=== PATIENT | female | born 1950 | race African-American/Black ===

== ENCOUNTER 2024-11-19 16:43 | Inpatient (IN) | payer MEDICARE, OTHER ==
[~2024-11-19] VITALS: Ht 154.9 cm; Wt 76.2 kg
[2024-11-19 16:44] VITALS: BP 155/84
[2024-11-19 17:02] LABS: PLATELET COUNT (AUTO) 162 K/uL (179-408); RED BLOOD CELL COUNT(AUTO) 4.17 MIL/uL (3.63-4.92); RED CELL DISTRIBUTION WIDTH 13.7 % (12.3-17.7); WHITE BLOOD COUNT (AUTO) 5.7 K/uL (3.8-11.8)
[2024-11-19 17:11] LABS: CREATININE 1.7 mg/dL (0.6-1.3); SODIUM SERUM 141 mmol/L (136-145); UREA NITROGEN, BLOOD 36 mg/dL (7-18)
[2024-11-19 17:15] LABS: ETHANOL < 3 MG/DL (0-10)
[2024-11-19] MEDS ORDERED: LEVO100T10 PO (17:16)
[2024-11-19] MEDS ORDERED: CHOL100062 PO (17:16)
[2024-11-19] MEDS ORDERED: DOCU-141 PO (17:16)
[2024-11-19] MEDS ORDERED: METO-357 PO (17:16)
[2024-11-19] MEDS ORDERED: DEXT15DR23 EACHEYE ×2 (17:16)
[2024-11-19] MEDS ORDERED: ACET325T53 PO (17:16)
[2024-11-19] MEDS ORDERED: OLAN10TA73 PO (17:16)
[2024-11-19] MEDS ORDERED: ASPI-1169 PO (17:16)
[2024-11-19] MEDS ORDERED: BUPR-96 PO (17:16)
[2024-11-19] MEDS ORDERED: THIA100T88 PO (17:16)
[2024-11-19] MEDS ORDERED: ATOR40TA PO (17:16)
[2024-11-19 17:23] LABS: ASPARTATE AMINOTRANSFERASE 10 U/L (15-37); TOTAL PROTEIN, SERUM 7.9 g/dL (6.4-8.2)
[2024-11-19 17:59] LABS: *BILIRUBIN,URIN NEGATIVE (NEGATIVE); *CLARITY,URINE CLEAR (CLEAR); *COLOR,URINE LIGHT YELLOW (YELLOW); *KETONES,URINE NEGATIVE (NEGATIVE); *PROTEIN,URINE NEGATIVE (NEGATIVE); *UROBILINOGEN,URINE 0.2 E.U./dl (NORMAL); LEUKOCYTE ESTERASE ,URINE NEGATIVE (NEGATIVE); NITRITE, URINE NEGATIVE (NEGATIVE); UGLUCOSE NEGATIVE (NEGATIVE)
[2024-11-19 18:00] LABS: *BLOOD, URINE TRACE (NEGATIVE)
[2024-11-19 18:05] LABS: SQUAMOUS EPITHELIAL CELL,UR FEW /HPF (NONE SEEN)
[2024-11-19 18:10] LABS: *AMPHETAMINE, URINE NEGATIVE (NEGATIVE); *BARBITURATE, URINE NEGATIVE (NEGATIVE); *BENZODIAZEPINE, URINE NEGATIVE (NEGATIVE); *CANNABINOID, URINE NEGATIVE (NEGATIVE); *COCCAINE, URINE NEGATIVE (NEGATIVE); *OPIATE, URINE NEGATIVE (NEGATIVE); *PHENCYCLIDINE SCREEN,URINE NEGATIVE (NEGATIVE); FENTANYL, URINE NEGATIVE (NEGATIVE)
[2024-11-19] MEDS ORDERED: MAGNESIUM HYDROXIDE 30 ML LIQUID UDC PO PRN (19:45)
[2024-11-19] MEDS ORDERED: LORAZEPAM 1 MG TABLET PO PRN ×2 (19:45)
[2024-11-19] MEDS ORDERED: MAG HYDROX/AL HYDROX/SIMETH 30 ML LIQUID UDC PO PRN (19:45)
[2024-11-19] MEDS ORDERED: ACETAMINOPHEN 325 MG TABLET PO PRN (19:45)
[2024-11-19] MEDS ORDERED: TEMAZEPAM 7.5 MG CAPSULE PO PRN (19:45)
[2024-11-19 20:00] VITALS: BP 157/92; TEMP 98.1; O2SAT 98
[2024-11-19] MEDS: BLOOD SUGAR DIAGNOSTIC 1 EACH STRIP VI ONE (20:00)
[2024-11-19] MEDS ORDERED: ACETAMINOPHEN 325 MG TABLET-SA PATIENTS-PAIN ONLY PO PRN (21:45)
[2024-11-19] MEDS: TEMAZEPAM 7.5 MG CAPSULE PO PRN (23:15)
[2024-11-20] MEDS ORDERED: ACETAMINOPHEN 325 MG TABLET PO PRN (06:00)
[2024-11-20] MEDS: LEVOTHYROXINE SODIUM 100 MCG TABLET PO SCH (06:14)
[2024-11-20 07:36] VITALS: BP 130/60; TEMP 97.8; O2SAT 94
[2024-11-20 07:55] LABS: GLUCOSE FASTING 92.0 mg/dL (70-115)
[2024-11-20] MEDS: DOCUSATE SODIUM 100 MG CAPSULE PO SCH (09:18)
[2024-11-20] MEDS: CHOLECALCIFEROL 1,000 UNIT TABLET PO SCH (09:19)
[2024-11-20] MEDS: THIAMINE HCL 100 MG TABLET PO SCH (09:19)
[2024-11-20] MEDS: ASPIRIN 81 MG TAB.CHEW PO SCH (09:22)
[2024-11-20] MEDS: METOPROLOL SUCCINATE XL 50 MG TAB.SR.24H PO SCH (09:22)
[2024-11-20 16:14] VITALS: BP 121/76; TEMP 98; O2SAT 95
[2024-11-20 20:00] VITALS: BP 135/75; TEMP 98.1; O2SAT 96
[2024-11-20] MEDS: ATORVASTATIN 40 MG TABLET PO SCH (20:24)
[2024-11-20] MEDS: TEMAZEPAM 15 MG CAPSULE PO PRN (23:54)
[2024-11-21 07:35] LABS: PLATELET COUNT (AUTO) 142 K/uL (179-408); RED BLOOD CELL COUNT(AUTO) 4.06 MIL/uL (3.63-4.92); RED CELL DISTRIBUTION WIDTH 13.7 % (12.3-17.7); WHITE BLOOD COUNT (AUTO) 5.2 K/uL (3.8-11.8)
[2024-11-21 08:01] LABS: CREATININE 1.5 mg/dL (0.6-1.3); SODIUM SERUM 141 mmol/L (136-145); UREA NITROGEN, BLOOD 36 mg/dL (7-18)
[2024-11-21 08:13] VITALS: BP 118/62; TEMP 98; O2SAT 98
[2024-11-21 15:11] VITALS: BP 97/59; TEMP 98; O2SAT 98
[2024-11-21 20:00] VITALS: BP 100/61; TEMP 97.9; O2SAT 96
[2024-11-22 07:56] VITALS: BP 127/66; TEMP 98.2; O2SAT 94
[2024-11-22 15:42] VITALS: BP_SYST 103; BP_SYST 125; BP_DIAS 54; BP_DIAS 63; TEMP 98; O2SAT 94; O2SAT 98
[2024-11-22 19:57] VITALS: BP 116/66; TEMP 97.9; O2SAT 95
[2024-11-23 08:28] VITALS: BP 125/65; TEMP 98; O2SAT 94
[2024-11-23 15:40] VITALS: BP 109/69; TEMP 98; O2SAT 96
[2024-11-23 19:38] VITALS: BP 111/66; TEMP 98; O2SAT 96
[2024-11-24 08:28] VITALS: BP 112/70; TEMP 98; O2SAT 96
[2024-11-24 16:49] VITALS: BP 105/56; TEMP 98; O2SAT 96
[2024-11-25 08:18] VITALS: BP 101/51; TEMP 98; O2SAT 96
[2024-11-25 16:33] VITALS: BP 112/68; TEMP 98; O2SAT 96
[2024-11-25 20:03] VITALS: BP 142/83; TEMP 98.4; O2SAT 99
[2024-11-26 08:11] LABS: CREATININE 1.5 mg/dL (0.6-1.3); SODIUM SERUM 141 mmol/L (136-145); UREA NITROGEN, BLOOD 41 mg/dL (7-18)
[2024-11-26 08:14] VITALS: BP 155/72; TEMP 98; O2SAT 96
[2024-11-26 16:20] VITALS: BP 136/67; TEMP 98; O2SAT 96
[2024-11-26 20:03] VITALS: BP 150/78; TEMP 97.9; O2SAT 95
[2024-11-27 07:47] VITALS: BP 110/60; TEMP 97.6; O2SAT 97
[2024-11-27 16:25] VITALS: BP 144/79; TEMP 97.6; O2SAT 98
[2024-11-27 19:47] VITALS: BP 163/65; TEMP 97.9; O2SAT 96
[2024-11-28 08:27] VITALS: BP 98/58; TEMP 98; O2SAT 94
[2024-11-28] MEDS: ENSURE ENLIVE (VAN) 240 ML LIQUID PO SCH (09:03)
[2024-11-28 15:54] VITALS: BP 106/67; TEMP 98; O2SAT 95
[2024-11-28 20:00] VITALS: BP 148/74; TEMP 98.1; O2SAT 95
[2024-11-29 08:22] VITALS: BP 141/68; TEMP 98; O2SAT 94
[2024-11-29 16:13] VITALS: BP 127/47; TEMP 98; O2SAT 94
[2024-11-29 19:58] VITALS: BP 142/71; TEMP 98.4; O2SAT 95
[2024-11-30 07:51] LABS: CREATININE 1.4 mg/dL (0.6-1.3); SODIUM SERUM 139 mmol/L (136-145); UREA NITROGEN, BLOOD 32 mg/dL (7-18)
[2024-11-30] MEDS: FLUOXETINE HCL 10 MG CAPSULE PO SCH (08:58)
[2024-11-30 09:21] VITALS: BP 96/55; TEMP 98.6; O2SAT 95
[2024-11-30 15:00] VITALS: BP 99/61; TEMP 98.8; O2SAT 96
[2024-11-30 20:00] VITALS: BP 132/77; TEMP 98.9; O2SAT 96
[2024-12-01 08:14] VITALS: BP 144/68; TEMP 98.8; O2SAT 96
[2024-12-01 16:53] VITALS: BP 134/60; TEMP 98.8; O2SAT 96
[2024-12-01 20:06] VITALS: BP 142/64; TEMP 98.1; O2SAT 98
[2024-12-02 08:33] VITALS: BP 138/61; TEMP 98.8; O2SAT 96
[2024-12-02 08:47] VITALS: BP 138/61
== END 2024-12-02 14:00 | DRG 885 ==
LOC: ER 17:17 → GPS 17:21
PROVIDERS: ADMIT Urology
DX: F20.9 Schizophrenia, unspecified (principal); N18.9 Chronic kidney disease, unspecified; N17.9 Acute kidney failure, unspecified; F01.53 Vascular dementia, unspecified severity, with mood disturbance; G93.40 Encephalopathy, unspecified; E03.9 Hypothyroidism, unspecified; Z91.148 Patient's other noncompliance with medication regimen for other reason; E78.5 Hyperlipidemia, unspecified; Z79.82 Long term (current) use of aspirin; Z79.899 Other long term (current) drug therapy; Z79.890 Hormone replacement therapy; E66.9 Obesity, unspecified; Z68.31 Body mass index [BMI] 31.0-31.9, adult; Z85.3 Personal history of malignant neoplasm of breast; Z91.199 Patient's noncompliance with other medical treatment and regimen due to unspecified reason; Z88.1 Allergy status to other antibiotic agents; I12.9 Hypertensive chronic kidney disease with stage 1 through stage 4 chronic kidney disease, or unspecified chronic kidney disease; F32.9 Major depressive disorder, single episode, unspecified
CPT/HCPCS: 36415; 76770; 85025; G0480